=== PATIENT | female | born 2005 | race Two or more races ===

== ENCOUNTER 2024-12-12 18:20 | Emergency (ER) | payer MEDICAID ==
[~2024-12-12] VITALS: Ht 154.9 cm; Wt 56.8 kg
[2024-12-12 18:27] VITALS: TEMP 98.2
[2024-12-12 20:15] VITALS: BP 129/71; PULSE 81; RESP 17; O2SAT 99
[2024-12-12] MEDS ORDERED: ACET-66 PO (20:29)
[2024-12-12] MEDS ORDERED: IBUP-1554 PO (20:29)
[2024-12-12] MEDS: IBUPROFEN 600 MG TABLET PO ONE (20:38)
== END 2024-12-12 20:40 | disposition home or self-care (01) ==
LOC: EMS 18:20
DX: S83.92XA Sprain of unspecified site of left knee, initial encounter (principal); Z88.0 Allergy status to penicillin; W05.1XXA Fall from non-moving nonmotorized scooter, initial encounter; Y93.I9 Activity, other involving external motion; Y92.89 Other specified places as the place of occurrence of the external cause; Y99.8 Other external cause status
CPT/HCPCS: 29505; 99283